=== PATIENT | female | born 1990 | race Caucasian/White ===

== ENCOUNTER 2018-11-18 10:12 | Emergency (ER) | payer OTHER, SELFPAY ==
[2018-11-18 10:20] VITALS: BP 110/85; PULSE 109; RESP 18; TEMP 98.4; O2SAT 98
--- NOTE | 2018-11-18 11:04 | RAD ---
HISTORY: cough - r/o infiltrate COMPARISON: Chest x-ray performed 10/26/13. TECHNIQUE: Chest PA and lateral FINDINGS: LUNGS: No focal consolidation. Please note that chest x-ray has limited sensitivity for the detection of pulmonary masses. PLEURA: No significant pleural effusion identified. No definite pneumothorax . CARDIOVASCULAR: Heart size appears within normal limits. No atherosclerotic calcification present. OSSEOUS STRUCTURES: No acute osseous abnormality identified. VISUALIZED UPPER ABDOMEN: Unremarkable. OTHER FINDINGS: None. IMPRESSION: No focal consolidation.
--- NOTE | 2018-11-18 13:00 | C.PDOC ---
History Of Present Illness 28 y/o female pt presents to the ER c/o non-productive cough for x5 days. Associated sx includes congestion and questionable fever. Pt has flu shot and denies recent travels shortness of breath, headache, chills, nausea, vomiting, diarrhea, diaphoresis, UTI sx, chest pain, ear pain, rash and back pain. Time Seen by Provider: 11/18/18 10:22 Chief Complaint (Nursing): Flu-like Symptoms History Per: Patient History/Exam Limitations: no limitations Onset/Duration Of Symptoms: Days (x5) Current Symptoms Are (Timing): Still Present Past Medical History Reviewed: Historical Data, Nursing Documentation, Vital Signs Vital Signs: Last Vital Signs Temp 98.4 F 11/18/18 10:17 Pulse 109 H 11/18/18 10:17 Resp 18 11/18/18 10:17 BP 110/85 11/18/18 10:17 Pulse Ox 98 11/18/18 10:17 - Medical History PMH: Asthma Family History: States: No Known Family Hx - Social History Hx Tobacco Use: No Hx Alcohol Use: No Hx Substance Use: No - Immunization History Hx Tetanus Toxoid Vaccination: No Hx Influenza Vaccination: No Hx Pneumococcal Vaccination: No Review Of Systems Except As Marked, All Systems Reviewed And Found Negative. Constitutional: Positive for: Fever (questionable ), Other (congestion; no recent travels). Negative for: Chills, Sweats ENT: Negative for: Ear Pain Cardiovascular: Negative for: Chest Pain Respiratory: Positive for: Cough. Negative for: Shortness of Breath Gastrointestinal: Negative for: Nausea, Vomiting, Diarrhea Genitourinary: Negative for: Dysuria, Frequency Musculoskeletal: Negative for: Back Pain Skin: Negative for: Rash Neurological: Negative for: Headache Physical Exam - Physical Exam Appears: Non-toxic, No Acute Distress Skin: Warm, Dry, No Rash Head: Normacephalic Eye(s): bilateral: Normal Inspection Nose: Normal Oral Mucosa: Moist Throat: Normal, No Erythema Neck: Normal ROM, Supple Cardiovascular: Rhythm Regular Respiratory: Normal Breath Sounds Gastrointestinal/Abdominal: Soft, No Tenderness Extremity: Normal ROM (x4) Neurological/Psych: Oriented x3, Normal Speech ED Course And Treatment O2 Sat by Pulse Oximetry: 98 (RA) Pulse Ox Interpretation: Normal Medical Decision Making Medical Decision Making: Plans: -- CXR Chest XR results: Accession No. : [id number] Patient Name / ID : JULIET WARD / [id number] Exam Date : 11/18/2018 10:49:40 ( Approved ) Study Comment : Sex / Age : F / 28Y Creator : Chrissy Mckay MD Dictator : Chrissy Mckay MD Cement Loader : Chalk Molding Machine Operator : Chrissy Mckay MD Approver2 : Report Date : 11/18/2018 11:00:58 My Comment : HISTORY: cough - r/o infiltrate COMPARISON: Chest x-ray performed 10/26/13. TECHNIQUE: Chest PA and lateral FINDINGS: LUNGS: No focal consolidation. Please note that chest x-ray has limited sensitivity for the detection of pulmonary masses. PLEURA: No significant pleural effusion identified. No definite pneumothorax . CARDIOVASCULAR: Heart size appears within normal limits. No atherosclerotic calcification present. OSSEOUS STRUCTURES: No acute osseous abnormality identified. VISUALIZED UPPER ABDOMEN: Unremarkable. OTHER FINDINGS: None. IMPRESSION: No focal consolidation. Disposition - Disposition Referrals: [facility] Nikko Almanza, [Non-Staff] - Disposition: HOME/ ROUTINE Disposition Time: 11:00 Condition: GOOD Additional Instructions: SYLVIA CHUNG, thank you for letting us take care of you today. The emergency medical care you received today was directed at your acute symptoms. If you were prescribed any medication, please fill it and take as directed. It may take several days for your symptoms to resolve. Return to the Emergency Department if your symptoms worsen, do not improve, or if you have any other problems. Please contact your doctor or call one of the physicians/clinics you have been referred to that are listed on the Patient Visit Information form that is included in your discharge packet. Bring any paperwork you were given at discharge with you along with any medications you are taking to your follow up visit. Our treatment cannot replace ongoing medical care by a primary care provider outside of the emergency department. Thank you for allowing the [facility] team to be part of your care today. Drink plenty of fluids to maintain your hydration. Follow up with your primary care doctor in 2-3 days for re-evaluation and further management. Instructions: Viral Syndrome (DC) Forms: [employer] (Nepali) - Clinical Impression Clinical Impression: Viral syndrome - Scribe Statement The provider has reviewed the documentation as recorded by the Scribe Andria Luz Provider Attestation: All medical record entries made by the Scribe were at my direction and personally dictated by me. I have reviewed the chart and agree that the record accurately reflects my personal performance of the history, physical exam, medical decision making, and the department course for this patient. I have also personally directed, reviewed, and agree with the discharge instructions and disposition.
== END 2018-11-18 11:20 | disposition home or self-care (01) ==
LOC: C.ER 10:12
DX: B34.9 Viral infection, unspecified (principal)